=== PATIENT | female | born 1945 | race Caucasian/White ===

== ENCOUNTER → 2020-07-02 12:08 | Outpatient (CLI) | payer MEDICARE, SELFPAY ==
--- NOTE | ~2020-07-02 | MM_ITS ---
EXAMINATION: MM screening mk BI w yao HISTORY: Screening TECHNIQUE: Craniocaudal and mediolateral oblique 3-D tomosynthesis images were obtained and synthetic 2-D images were generated. CAD analysis was submitted and interpreted. COMPARISON: 06/27/2019 BREAST PARENCHYMAL COMPOSITION: Breast composed of scattered areas of fibroglandular density. FINDINGS: There is no evidence of suspicious mass, calcification, or architectural distortion to sugg est malignancy in either breast. There has been no suspicious interval change. IMPRESSION: 1. No mammographic evidence of malignancy. 2. Recommend routine screening mammography in one year. BI-RADS Category 1: Negative Reviewed, dictated and finalized at location A.
== END ==
PROVIDERS: PCP Family Medicine; Visit Provider Family Medicine
DX: Z12.31 Encounter for screening mammogram for malignant neoplasm of breast (principal)
CPT/HCPCS: 77063; 77067

== ENCOUNTER 2021-06-29 10:54 | Outpatient (CLI) | payer MEDICARE, SELFPAY ==
--- NOTE | ~2021-06-29 | XR_ITS ---
EXAMINATION: XR lumbar spine 2-3V EXAM DATE: 06/29/2021 11:33 INDICATION: M54.50 - Low back pain, unspecified. TECHNIQUE: Lumber spine frontal, lateral, lateral L5-S1 projections for interpretation. There is no prior study for comparison. FINDINGS: There is severe disc disease L3-4, moderate to severe at L2-3. There is moderate dextroscol iosis centered at the L3 level. There is severe lumbar facet arthropathy. The vertebral bodies are al igned in the AP dimension. There is some right lateral subluxation L3 on L4. Sacrum, sacroiliac joint s, sacral arcuate lines are intact. There is moderate aortic arterial sclerosis. IMPRESSION: 1. Moderate to severe L2-3 and L3-4 disc disease. 2. Moderate dextroscoliosis centered at L3. 3. Severe facet arthropathy. Reviewed, dictated and finalized at location A.
== END 2021-06-29 10:55 | disposition home or self-care (01) ==
LOC: ANHIMG 11:04
PROVIDERS: PCP Family Medicine; Visit Provider Family Medicine
DX: M47.816 Spondylosis without myelopathy or radiculopathy, lumbar region (principal); M41.9 Scoliosis, unspecified
CPT/HCPCS: 72100

== ENCOUNTER 2023-11-28 11:47 | Outpatient (CLI) | payer MEDICARE, SELFPAY ==
--- NOTE | ~2023-11-28 | XR_ITS ---
EXAMINATION: XR chest 2V DATE: 11/28/2023 12:03 INDICATION: Shortness of breath. TECHNIQUE: Frontal and lateral views of the chest were obtained. COMPARISON: Chest 2 views 10/17/18 FINDINGS: There is mild scarring at the lung apices. No pleural effusion or pneumothorax. The heart s ize is normal. IMPRESSION: 1. Stable mild scarring at the lung apices. Reviewed, dictated and finalized at location E. [employer]
== END 2023-11-28 11:48 | disposition home or self-care (01) ==
PROVIDERS: PCP Family Medicine; Visit Provider Physician Assistant
DX: R06.02 Shortness of breath (principal); R91.8 Other nonspecific abnormal finding of lung field
CPT/HCPCS: 71046